=== PATIENT | female | born 2000 | race Two or more races ===

== ENCOUNTER 2019-09-18 19:42 | Emergency (ER) | payer BC, MEDICAID, OTHER ==
[2019-09-18] MEDS ORDERED: Cyclobenzaprine 10 MG Tab PO ONE (19:43)
[2019-09-18] MEDS ORDERED: Ketorolac 60 MG/2 ML SDV IM ONE (20:02)
[2019-09-18 20:06] VITALS: BP 127/81; PULSE 96
--- NOTE | 2019-09-18 20:06 | EDM.PDOC ---
ED HPI GENERAL MEDICAL PROBLEM - General Chief Complaint: Back Pain or Injury Stated Complaint: RT LOWER BACK PAIN Time Seen by Provider: 09/18/19 20:03 Source of Information: Reports: Patient History Limitations: Reports: No Limitations - History of Present Illness INITIAL COMMENTS - FREE TEXT/NARRATIVE: 19 yo female with rt lower back pain x 20 min. She was moving out of bed,when she suddenly developed rt lower back pain. Does not radiate anywhere. Sharp.Movement makes it worse.Has not taken anything. Previously had pain in similar area a few years ago. lower right back Pain Score (Numeric/FACES): 8 - Related Data Allergies Allergy/AdvReac Type Severity Reaction Status Date / Time No Known Allergies Allergy Verified 09/18/19 19:52 Home Meds: Home Meds NK [No Known Home Meds] 07/06/14 [History] Past Medical History - Past Health History Medical/Surgical History: Denies Medical/Surgical History Social & Family History - Family History Family Medical History: Noncontributory - Caffeine Use Caffeine Use: Reports: Soda - Living Situation & Occupation Living situation: Reports: with Family Occupation: Student ED ROS GENERAL - Review of Systems Review Of Systems: ROS reveals no pertinent complaints other than HPI. ED EXAM,LOWER BACK PAIN/INJURY - Physical Exam Exam: See Below Exam Limited By: No Limitations General Appearance: Alert, WD/WN, No Apparent Distress Back Exam: Normal Inspection, Decreased Range of Motion, Muscle Spasm, Paraspinal Tenderness. No: CVA Tenderness (R), Vertebral Tenderness Extremities: Normal Inspection Course - Orders/Labs/Meds Orders: Active Orders 24 hr Category Date Time Status Ketorolac [Toradol] Med 09/18/19 20:02 Once 60 mg IM ONETIME ONE Departure - Departure Time of Disposition: 20:05 Disposition: Home, Self-Care 01 Condition: Good Clinical Impression: Acute lumbar myofascial strain - Discharge Information Referrals: David Lanza MD [Primary Care Provider] - - Problem List & Annotations (1) Acute lumbar myofascial strain SNOMED Code(s): 595223490, 47060575, 916919170 Code(s): S39.012A - STRAIN OF MUSCLE, FASCIA AND TENDON OF LOWER BACK, INIT Status: Acute Qualifiers: Encounter type: initial encounter Qualified Code(s): S39.012A - Strain of muscle, fascia and tendon of lower back, initial encounter - Problem List Review Problem List Initiated/Reviewed/Updated: Yes - My Orders Last 24 Hours: My Active Orders 09/18/19 20:02 Ketorolac [Toradol] 60 mg IM ONETIME ONE - Assessment/Plan Last 24 Hours: My Active Orders 09/18/19 20:02 Ketorolac [Toradol] 60 mg IM ONETIME ONE Plan: Toradol 60 mg IM. Heat to the aera. Flexeril 10 mg qhs. Return to PCP prn
== END 2019-09-18 20:30 | disposition home or self-care (01) ==
LOC: FB.ED 19:42
DX: S39.012A Strain of muscle, fascia and tendon of lower back, initial encounter (principal); X58.XXXA Exposure to other specified factors, initial encounter; Y93.89 Activity, other specified
CPT/HCPCS: 96372; 99282; J1885; A9270-GY

== ENCOUNTER 2022-06-18 13:20 | Emergency (ER) | payer SELFPAY ==
[2022-06-18] MEDS ORDERED: Lidocaine 2% 20 ML MDV INFILT ONE (13:21)
[2022-06-18] MEDS ORDERED: Diphtheria,Pertussis(Acell),Tetanus Vaccine 0.5 ML Syringe IM ONE (13:32)
[2022-06-18] MEDS ORDERED: Bacitracin Oint 1 GM U/D Packet TOP ONE (13:32)
[2022-06-18] MEDS ORDERED: Acetaminophen 500 MG Tab PO ONE (13:39)
[2022-06-18 18:46] VITALS: BP 128/71; PULSE 78
== END 2022-06-18 14:19 | disposition home or self-care (01) ==
LOC: FB.ED 13:20
DX: S61.303A Unspecified open wound of left middle finger with damage to nail, initial encounter (principal); Z23 Encounter for immunization; W23.0XXA Caught, crushed, jammed, or pinched between moving objects, initial encounter; Y93.I9 Activity, other involving external motion
CPT/HCPCS: 90471; 90715; 99281; 99283; A9270